=== PATIENT | male | born 1985 | race Caucasian/White ===

== ENCOUNTER 2018-08-21 17:32 | Emergency (ER) | payer OTHER ==
--- NOTE | 2018-08-21 18:26 | EDPHY ---
General - History Smoking Status: Never smoked Time Seen by Provider: 08/21/18 18:09 Narrative: CHIEF COMPLAINT: Laceration HISTORY OF PRESENT ILLNESS: Patient presents by private vehicle with complaints of finger laceration. He states that he was at work this afternoon when he accidentally cut himself on the left middle finger with a razor blade. There was moderate bleeding that stopped with pressure. No numbness. No tingling. Minimal pain. No difficulty been or straightening the finger. No broken glass or foreign debris. No injury elsewhere. Tetanus up-to-date less than 2 years ago. Right- hand dominant. No other associated complaints or modifying factors. 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 TIME OF INJURY: Less than 2 hr ago TETANUS STATUS: Up-to-date MEDICAL/SURGICAL/SOCIAL HISTORY: Uncomplicated. Orthopedic surgery remotely. Denies tobacco or alcohol use. Works locally [employer] REVIEW OF SYSTEMS: Ten systems reviewed and are negative unless otherwise noted in the HPI EXAMINATION General Appearance: Alert, no distress Head: normocephalic, atraumatic Cardiovascular: Symmetric radial pulses 2+. Brisk cap refill in the fingers of both hands. Neurological: A&O, 2 point and light sensory symmetric, trimming inspector and interossei strength symmetric Skin: Warm and dry, no rash. 2.5 cm complex laceration of the left middle finger distally with involvement of the nail. No foreign body. No pulsatile bleeding. No extensor tendon injury. No flexor tendon injury. Extremities: Minimal tenderness over the area of laceration left middle finger. Full range of motion of the affected finger including extension, and both flexors. No injury elsewhere. Range of motion of the hand symmetric. DIFFERENTIAL DIAGNOSES: Including but not limited to laceration, laceration complication, laceration with tendon injury, laceration foreign body MDM: 6:15 p.m. Acute laceration to the distal portion of the left middle finger that happened just prior to arrival. He is neuro intact. I have administered digital Block p.o. We will irrigate re-evaluated. No indication for x-ray. Tetanus up-to- date. 7:00 p.m. Laceration has been irrigated and I have repaired the wound. It was necessary to so through the fingernail as the wound did track up to the nail bed but did not include the nail bed. There was superficial injury to the nail. This was tolerated well without difficulty. He is placed in a tube gauze dressing. We discussed leave this on for 48 hr and then daily wound care. We discussed returning here in 7-10 days for suture removal. We discussed work comp follow- up. I have answered all his questions. We discussed signs and symptoms of infections to watch for. Discharged home stable condition. PROCEDURE: Laceration repair Consent: Verbal Location: Left middle finger, pad Length of repair: 2.5 cm Complexity: Complex Layer involvement: Single Anesthesia: Digital block Irrigation: Extensive Debridement: None Procedure description: Following good anesthesia, the wound was copiously irrigated. Wound bed was explored with a sterile glove, and there is no foreign body noted. Wound borders were approximated well with good hemostasis. Tolerated well without complication. Suture/Staple material: 5-0 Prolene, 5 simple ruptured sutures Wound care: Routine as discussed Suture/Staple removal: 7-10 Days PROCEDURE: Digital Block Indication: Finger laceration Consent: Verbal Location: Left middle finger Anesthesia: Lidocaine 1% plain, 0.25% Marcaine plain, 5mL Description: Base of the finger was prepped. The above was infused without difficulty. Tolerated well. Good anesthesia. Complications: None SUPERVISION: This patient was independently evaluated without direct involvement of or examination by the attending physician. ED Precautions: Worsening pain. Erythema, edema, cyanosis, pallor, paresthesia or anesthesia. (Vick Recio) The patient was evaluated and managed by the physician assistant paralegal. I have reviewed this chart and I agree with the findings and plan of care as documented , as indicated by my signature. I am the secondary supervising physician. ( Leeann Villanueva) - Objective Vital Signs: Initial Vital Signs Temperature (C) 36.7 C 08/21/18 17:36 Heart Rate 58 L 08/21/18 17:36 Respiratory Rate 16 08/21/18 17:36 Blood Pressure 122/68 H 08/21/18 17:36 O2 Sat (%) 99 08/21/18 17:36 O2 Delivery Mode Room Air Allergies/Adverse Reactions: No Known Allergies Allergy (Unverified 08/21/18 17:36) Home Medications: Medication Instructions Recorded NK [No Known Home Meds] 08/21/18 Departure - Departure Disposition: Home, Routine, Self-Care Clinical Impression: Laceration of left middle finger w/o foreign body with damage to nail Condition: Good Instructions: Care For Your Stitches (DC), Finger Laceration (ED) Additional Instructions: 1. Thin layer of bacitracin once daily for the next 2 days 2. Keep the wound covered while showering for the next 3 days 3. Daily wound care as discussed 4. Return here for suture removal in 7-10 days 5. Return here for signs of infection as discussed including warmth, redness, fever, drainage from the site 6. return here for increasing pain surrounding the laceration 7. Do not submerge the wound in any water, hot tub, swimming pool until sutures removed 8. Contact her worker's compensation [facility] tomorrow morning Referrals: Jaciel Odom MD [Medical Doctor] - As per Instructions (If needed) Stand Alone Forms: Work Limited Duty, Work Comp Follow Up
[2018-08-21 19:32] VITALS: BP 124/96
== END 2018-08-21 19:31 | disposition home or self-care (01) ==
PROC: 0JQK3ZZ Repair Left Hand Subcutaneous Tissue and Fascia, Percutaneous Approach (ICD-10-PCS; principal; 2018-08-21)
DX: S61.213A Laceration without foreign body of left middle finger without damage to nail, initial encounter (principal); W45.8XXA Other foreign body or object entering through skin, initial encounter; Y99.0 Civilian activity done for income or pay; Y92.9 Unspecified place or not applicable; Y93.9 Activity, unspecified